=== PATIENT | male | born 1935 | race Caucasian/White ===

== ENCOUNTER 2016-06-19 10:39 | Emergency (ER) | payer OTHER ==
[~2016-06-19] VITALS: Ht 170.2 cm; Wt 81.0 kg
[~2016-06-19 10:39] MED LIST: ATEN25TA PO; AUGM875T PO; KLOR8TAB PO; LOSA100T PO; NIFE60TA58 PO
[2016-06-19 10:46] VITALS: BP 125/77; PULSE 90; RESP 18; TEMP 97.8; O2SAT 95
[2016-06-19] MEDS ORDERED: SODIUM CHLOR 0.9% 1000 ML INJ 1,000 ML IV ONE (11:07)
[2016-06-19] MEDS ORDERED: SODIUM CHLORIDE 0.9% FLUSH 10 ML FLUSH IVF PRN (11:15)
[2016-06-19] MEDS ORDERED: MECLIZINE HCL 25 MG TAB PO ONE (11:15)
[2016-06-19 11:16] VITALS: TEMP 98.2; O2SAT 97
[2016-06-19] MEDS ORDERED: SIMV20TA PO (11:16)
--- NOTE | 2016-06-19 11:19 | PD ---
HPI . Weakness Chief Complaint: General Weakness Time Seen by Provider: 10:58 Travel History International Travel<30 days: No Contact w/Intl Traveler<30days: No Traveled to known affect area: No History of Present Illness HPI Patient presents complaining with generalized weakness. He's been having problems for a couple weeks. He reports frequency of urination and nocturia 2 weeks. He denies any hesitancy or dribbling. Denies dysuria. He reports generalized weakness for the last 3-4 days. He reports pain in both knees and shoulders which is an ongoing issue. He is also complaining with swelling of both feet. In addition, he is complaining with pressure in the right side of his head with associated lightheadedness. He reports that he has an appointment to see his primary care provider in 3 hours but did not feel that he can wait that long. He subsequently presented to us for evaluation. PFSH Past Medical History Hx Anticoagulant Therapy: Yes (81 MG ASA) Arthritis: Yes Asthma: No Heart Rhythm Problems: No Cardiovascular Problems: Yes High Cholesterol: Yes Chest Pain: No Congestive Heart Failure: No COPD: No Cerebrovascular Accident: No Diabetes: No Diminished Hearing: No Gastrointestinal Disorders: No GERD: No Genitourinary: No Headaches: No Hepatitis: No Hiatal Hernia: No Hypertension: Yes Musculoskeletal: Yes (SPUR L ELBOW VAIOUS BROKEN BONES) Neurologic: Yes Reproductive: No Respiratory: No Immunizations Current: Yes Migraines: No Myocardial Infarction: No Seizures: No Sleep Apnea: No Ulcer: No Influenza Vaccination: No Past Surgical History Abdominal Surgery: Yes Appendectomy: Yes Cardiac Surgery: No Cholecystectomy: No Ear Surgery: No Endocrine Surgery: No Eye Surgery: No Genitourinary Surgery: No Gynecologic Surgery: No Neurologic Surgery: No Oral Surgery: Yes (TONSILECTOMY) Thoracic Surgery: No Tonsillectomy: Yes Other Surgery: Yes Social History Alcohol Use: No Tobacco Use: No Substance Use: No Allergies-Medications (Allergen,Severity, Reaction): Coded Allergies: No Known Allergies (Verified , 02/02/16) Reported Meds & Prescriptions Reported Meds & Active Scripts Active Reported Simvastatin 20 Mg Tab 20 Mg PO DAILY Klor-Con 8 (Potassium Chloride) 8 Meq Tab 8 Meq PO DAILY Losartan (Losartan Potassium) 100 Mg Tab 100 Mg PO DAILY Nifedipine ER 24 HR (Nifedipine) 60 Mg Tab 60 Mg PO DAILY Review of Systems Except as stated in HPI: all other systems reviewed are Neg General / Constitutional: No: Fever, Chills Eyes: No: Diploplia, Blurred Vision HENT: Positive: Headaches, Lightheadedness Cardiovascular: No: Chest Pain or Discomfort Respiratory: No: Shortness of Breath Gastrointestinal: No: Nausea, Vomiting, Diarrhea, Abdominal Pain Genitourinary: Positive: Frequency, Nocturia, No: Dysuria, Hesitancy, Dribbling Musculoskeletal: Positive: Arthralgias, Edema Neurologic: Positive: Weakness Physical Exam Narrative GENERAL: Healthy-appearing older man in no acute distress. SKIN: Warm and dry. HEAD: Atraumatic. Normocephalic. Scalp is nontender to palpation. EYES: Pupils equal and round. Extraocular movements are intact. ENT: No nasal bleeding or discharge. Mucous membranes pink and moist. NECK: Trachea midline. Neck is supple. CARDIOVASCULAR: Regular rate and rhythm. Heart sounds are normal. RESPIRATORY: No accessory muscle use. Lungs are clear with good air movement throughout. GASTROINTESTINAL: Abdomen soft, non-tender, nondistended. MUSCULOSKELETAL: No obvious deformities. No edema. There is no pitting edema of his feet. He has full and equal pedal pulses. NEUROLOGICAL: Awake and alert. No obvious cranial nerve deficits. Motor grossly within normal limits. Normal speech. PSYCHIATRIC: Appropriate mood and affect; insight and judgment normal. Data Data Last Documented VS Vital Signs Date Time Temp Pulse Resp B/P Pulse Ox O2 Delivery O2 Flow Rate FiO2 06/19/16 11:16 98.2 97 Room Air 06/19/16 10:46 90 18 125/77 Orders Complete Blood Count With Diff (06/19/16 11:07) Comprehensive Metabolic Panel (06/19/16 11:07) Magnesium (Mg) (06/19/16 11:07) Ckmb (Isoenzyme) Profile (06/19/16 11:07) Troponin I (06/19/16 11:07) Urinalysis - C+S If Indicated (06/19/16 11:07) Ct Brain W/O Iv Contrast(Rout) (06/19/16 11:07) Ecg Monitoring (06/19/16 11:07) Iv Access Insert/Monitor (06/19/16 11:07) Oximetry (06/19/16 11:07) Meclizine (Antivert) (06/19/16 11:15) Sodium Chloride 0.9% Flush (Ns Flush) (06/19/16 11:15) Sodium Chlor 0.9% 1000 Ml Inj (Ns 1000 M (06/19/16 11:07) Prochlorperazine Inj (Compazine Inj) (06/19/16 11:30) CKMB (06/19/16 11:15) CKMB% (06/19/16 11:15) Labs Laboratory Tests Test 06/19/16 06/19/16 11:15 11:59 White Blood Count 8.9 TH/MM3 Red Blood Count 4.82 MIL/MM3 Hemoglobin 14.2 GM/DL Hematocrit 42.3 % Mean Corpuscular Volume 87.8 FL Mean Corpuscular Hemoglobin 29.4 PG Mean Corpuscular Hemoglobin 33.5 % Concent Red Cell Distribution Width 13.0 % Platelet Count 196 TH/MM3 Mean Platelet Volume 6.8 FL Neutrophils (%) (Auto) 73.8 % Lymphocytes (%) (Auto) 13.8 % Monocytes (%) (Auto) 10.0 % Eosinophils (%) (Auto) 1.7 % Basophils (%) (Auto) 0.7 % Neutrophils # (Auto) 6.5 TH/MM3 Lymphocytes # (Auto) 1.2 TH/MM3 Monocytes # (Auto) 0.9 TH/MM3 Eosinophils # (Auto) 0.2 TH/MM3 Basophils # (Auto) 0.1 TH/MM3 CBC Comment DIFF FINAL Differential Comment Sodium Level 139 MEQ/L Potassium Level 3.4 MEQ/L Chloride Level 103 MEQ/L Carbon Dioxide Level 24.5 MEQ/L Anion Gap 12 MEQ/L Blood Urea Nitrogen 13 MG/DL Creatinine 0.90 MG/DL Estimat Glomerular Filtration 81 ML/MIN Rate Random Glucose 112 MG/DL Calcium Level 8.7 MG/DL Magnesium Level 1.9 MG/DL Total Bilirubin 1.0 MG/DL Aspartate Amino Transf 22 U/L (AST/SGOT) Alanine Aminotransferase 26 U/L (ALT/SGPT) Alkaline Phosphatase 60 U/L Total Creatine Kinase 111 U/L Creatine Kinase MB 1.7 NG/ML Troponin I LESS THAN 0.02 NG/ML Total Protein 7.2 GM/DL Albumin 3.9 GM/DL Urine Collection Type CLEAN CATCH Urine Color YELLOW Urine Turbidity CLEAR Urine pH 6.0 Urine Specific Abrams 1.016 Urine Protein TRACE mg/dL Urine Glucose (UA) NEG mg/dL Urine Ketones NEG mg/dL Urine Occult Blood NEG Urine Nitrite NEG Urine Bilirubin NEG Urine Leukocyte Esterase NEG Urine RBC 0-3 /hpf Urine WBC 3-5 /hpf Urine Squamous Epithelial 0-5 /hpf Cells Urine Mucus FEW /lpf Microscopic Urinalysis Comment CULT NOT INDICATED Urine Collection Time 11:59 [facility] Medical Decision Making Medical Screen Exam Complete: Yes Emergency Medical Condition: Yes Medical Record Reviewed: Yes (medical history includes hypertension, hyperlipidemia, coronary artery disease, osteoarthritis, vertigo, previous syncope and a history of tobacco abuse) Interpretation(s) EKG shows a left bundle branch block which is unchanged from previous Differential Diagnosis Differential diagnosis of weakness includes but is not limited to infection, CVA , electrolyte disturbance, renal failure, hypoglycemia, UTI, ACS, acute blood loss Narrative Course Patient presents with numerous complaints with the chief complaint seems to be weakness with head pain and lightheadedness. He has an appointment to be seen by his primary care physician in just a couple of hours. I will check baseline labs. I will do a CT of his head. I anticipate that we will be able to discharge him in time to make it to his doctor's office. CBC & BMP Diagram 06/19/16 11:15 Cardiac enzymes are negative. UA has no evidence of infection. Last Impressions Head CT 06/19/16 1107 Signed Impressions: Service Date/Time: Wednesday, June 19, 2016 11:18 - CONCLUSION: No acute intracranial findings. Jonathan Bowen MD This patient is clear to see his primary care physician as previously scheduled. Diagnosis Primary Impression: Generalized weakness Additional Instructions: See your primary care physician as scheduled Disposition: 01 DISCHARGE HOME Condition: Stable Yuko Crain MD Jun 19, 2016 11:19
[2016-06-19 11:20] LABS: AUTOMATED NEUTROPHIL # 6.5 TH/MM3 (1.8-7.7); BASOPHIL # 0.1 TH/MM3 (0-0.2); BASOPHIL % 0.7 % (0.0-2.0); EOSINOPHIL # 0.2 TH/MM3 (0-0.4); EOSINOPHIL % 1.7 % (0.0-4.0); HEMATOCRIT 42.3 % (39.0-51.0); HEMO FLAGS DIFF FINAL; LYMPH % 13.8 % (9.0-44.0); LYMPHOCYTE # 1.2 TH/MM3 (1.0-4.8); MEAN CELL VOLUME 87.8 FL (80.0-100.0); MEAN CORPUSCULAR HEMOGLOBIN 29.4 PG (27.0-34.0); MEAN CORPUSCULAR HGB CONC 33.5 % (32.0-36.0); NEUT % 73.8 % (16.0-70.0); PLATELET COUNT 196 TH/MM3 (150-450); RED BLOOD COUNT 4.82 MIL/MM3 (4.50-5.90); WHITE BLOOD COUNT 8.9 TH/MM3 (4.0-11.0)
[2016-06-19] MEDS ORDERED: PROCHLORPERAZINE INJ 10 MG/2 ML VIAL IV PUSH ONE (11:30)
[2016-06-19 11:31] LABS: CHLORIDE 103 MEQ/L (98-107); POTASSIUM 3.4 MEQ/L (3.5-5.1); SODIUM (NA) 139 MEQ/L (136-145)
[2016-06-19 11:36] LABS: ANION GAP 12 MEQ/L (5-15); BICARBONATE 24.5 MEQ/L (21.0-32.0); BLOOD UREA NITROGEN 13 MG/DL (7-18); MAGNESIUM 1.9 MG/DL (1.5-2.5)
[2016-06-19 11:39] LABS: ALT (GPT) 26 U/L (12-78); AST (GOT) 22 U/L (15-37); GLOMERULAR FILTRATION RATE 81 ML/MIN (>89)
[2016-06-19 11:42] LABS: ALKALINE PHOSPHATASE 60 U/L (45-117); CREATINE KINASE 111 U/L (39-308)
[2016-06-19 11:53] LABS: CKMB 1.7 NG/ML (0.5-3.6)
--- NOTE | 2016-06-19 11:55 | RADHPO ---
EXAM DATE/TIME: 06/19/2016 11:18 [facility] COMPARISON: CT BRAIN W/O CONTRAST, April 09, 2015, 9:25. INDICATIONS : Dizziness. Weakness. RADIATION DOSE: 67.24 CTDIvol (mGy) MEDICAL HISTORY : Cardiovascular disease. Hypertension. SURGICAL HISTORY : Appendectomy. ENCOUNTER: Initial ACUITY: 3 days PAIN SCALE: 0/10 LOCATION: cranial TECHNIQUE: Multiple contiguous axial images were obtained of the head. Using automated exposure control and adj ustment of the mA and/or kV according to patient size, radiation dose was kept as low as reasonably a chievable to obtain optimal diagnostic quality images. FINDINGS: There is patchy mild diminished attenuation in periventricular white matter. A tiny lacunar infarct p resent in the left insula. There is no evidence of mass or hemorrhage. There is nothing to suggest ac robbie infarction. The extracranial structures are benign intact. CONCLUSION: No acute intracranial findings. Jonathan Bowen MD on June 19, 2016 at 11:53 Board Certified Radiologist. This report was verified electronically.
[2016-06-19 12:01] LABS: BLOOD, URINE NEG (NEG); GLUCOSE,URINE NEG (NEG); KETONE, URINE NEG (NEG); NITRITE,URINE NEG (NEG)
[2016-06-19 12:24] LABS: METHOD OF COLLECTION CLEAN CATCH; URINE COLOR YELLOW (YELLW/STRAW)
[2016-06-19 12:25] LABS: COMMENT (UR) CULT NOT INDICATED; CULTURE IF INDICATED CULT NOT INDICATED; MUCUS URINE FEW /lpf (OCC); RBC, URINE 0-3 /hpf (0-3); SQUAMOUS EPITHELIAL CELL URINE 0-5 /hpf (0-5)
--- NOTE | 2016-06-20 14:41 | EKG ---
Date Performed: 06/19/2016 Time Performed: 10:52:36 PTAGE: 81 years EKG: Sinus rhythm Left axis deviation Left bundle branch block Compared to prior tracing no significant change Abnorma l ECG PREVIOUS TRACING : 12/26/2015 13.42 DOCTOR: Ryan Angel Interpretating Date/Time 06/20/2016 14:38:56
== END 2016-06-19 13:16 | disposition home or self-care (01) ==
LOC: PHED 10:39
DX: R53.1 Weakness (principal); R94.31 Abnormal electrocardiogram [ECG] [EKG]; I44.7 Left bundle-branch block, unspecified; R35.0 Frequency of micturition; R35.1 Nocturia; R42 Dizziness and giddiness; E78.00 Pure hypercholesterolemia, unspecified; I10 Essential (primary) hypertension; E78.5 Hyperlipidemia, unspecified; I25.10 Atherosclerotic heart disease of native coronary artery without angina pectoris; Z79.82 Long term (current) use of aspirin; Z87.891 Personal history of nicotine dependence
CPT/HCPCS: 70450; 80053; 81001; 82550; 82552; 83735; 84484; 85025; 93005; 96361; 96374; 99285; J0780; J7030

== ENCOUNTER 2016-06-24 02:11 | Emergency (ER) | payer OTHER ==
[~2016-06-24] VITALS: Ht 170.2 cm; Wt 80.0 kg
[~2016-06-24 02:11] MED LIST changes: -ATEN25TA PO; -AUGM875T PO; +SIMV20TA PO
[2016-06-24 02:17] VITALS: BP 151/87; PULSE 99; RESP 18; TEMP 97.6; O2SAT 96
[2016-06-24 02:32] VITALS: BP 151/87; PULSE 96; RESP 18; TEMP 97.6; O2SAT 96
[2016-06-24] MEDS ORDERED: SODIUM CHLOR 0.9% 1000 ML INJ 1,000 ML IV SCH ×2 (02:49→03:45)
--- NOTE | 2016-06-24 02:52 | PD ---
HPI Chief Complaint: Abdominal Pain Time Seen by Provider: 02:35 Travel History International Travel<30 days: No Contact w/Intl Traveler<30days: No Traveled to known affect area: No History of Present Illness HPI The patient is an 81-year-old male that complains of midline epigastric pain and nausea with vomiting once beginning 6 hours ago. The patient feels that it is the prednisone that he was given on the seventh of this month. He was given prednisone for his arthritis. He denies vomiting any blood or any melanotic or bloody stools. He denies any fever. He denies any diarrhea. His last bowel movement was fairly normal this morning. He still has his gallbladder but he has had an appendectomy. PFSH Past Medical History Hx Anticoagulant Therapy: Yes (81 MG ASA) Arthritis: Yes Asthma: No Heart Rhythm Problems: No Cardiovascular Problems: Yes High Cholesterol: Yes Chest Pain: No Congestive Heart Failure: No COPD: No Cerebrovascular Accident: No Diabetes: No Diminished Hearing: No Gastrointestinal Disorders: No GERD: No Genitourinary: No Headaches: No Hepatitis: No Hiatal Hernia: No Hypertension: Yes Musculoskeletal: Yes (SPUR L ELBOW VAIOUS BROKEN BONES) Neurologic: Yes Reproductive: No Respiratory: No Immunizations Current: Yes Migraines: No Myocardial Infarction: No Seizures: No Sleep Apnea: No Ulcer: No Tetanus Vaccination: Unknown Influenza Vaccination: No Past Surgical History Abdominal Surgery: Yes Appendectomy: Yes Cardiac Surgery: No Cholecystectomy: No Ear Surgery: No Endocrine Surgery: No Eye Surgery: No Genitourinary Surgery: No Gynecologic Surgery: No Neurologic Surgery: No Oral Surgery: Yes (TONSILECTOMY) Thoracic Surgery: No Tonsillectomy: Yes Other Surgery: Yes Social History Alcohol Use: No Tobacco Use: No Substance Use: No Allergies-Medications (Allergen,Severity, Reaction): Coded Allergies: No Known Allergies (Verified , 06/24/16) Reported Meds & Prescriptions Reported Meds & Active Scripts Active Reported Simvastatin 20 Mg Tab 20 Mg PO DAILY Klor-Con 8 (Potassium Chloride) 8 Meq Tab 8 Meq PO DAILY Losartan (Losartan Potassium) 100 Mg Tab 100 Mg PO DAILY Nifedipine ER 24 HR (Nifedipine) 60 Mg Tab 60 Mg PO DAILY Review of Systems Except as stated in HPI: all other systems reviewed are Neg Physical Exam Narrative GENERAL: The patient is alert, oriented 3 in moderate apparent distress with his midline epigastric discomfort. His vital signs show temperature 97.6, pulse 99, blood pressure 151/87 but are otherwise normal. SKIN: Focused skin assessment warm/dry. HEAD: Atraumatic. Normocephalic. EYES: Pupils equal and round. No scleral icterus. No injection or drainage. ENT: No nasal bleeding or discharge. Mucous membranes pink and moist. NECK: Trachea midline. No JVD. CARDIOVASCULAR: Regular rate and rhythm. No murmur appreciated. RESPIRATORY: No accessory muscle use. Clear to auscultation. Breath sounds equal bilaterally. GASTROINTESTINAL: Abdomen soft, with slight tenderness to direct palpation in the midline epigastrium, nondistended. Hepatic and splenic margins not palpable. No guarding or rebound is present. MUSCULOSKELETAL: No obvious deformities. No clubbing. No cyanosis. No edema. NEUROLOGICAL: Awake and alert. No obvious cranial nerve deficits. Motor grossly within normal limits. Normal speech. PSYCHIATRIC: Appropriate mood and affect; insight and judgment normal. Data Data Last Documented VS Vital Signs Date Time Temp Pulse Resp B/P Pulse Ox O2 Delivery O2 Flow Rate FiO2 06/24/16 03:43 68 18 142/74 97 Room Air 06/24/16 02:32 97.6 Orders Complete Blood Count With Diff (06/24/16 02:49) Comprehensive Metabolic Panel (06/24/16 02:49) Urinalysis - C+S If Indicated (06/24/16 02:49) Iv Access Insert/Monitor (06/24/16 02:49) Ecg Monitoring (06/24/16 02:49) Oximetry (06/24/16 02:49) Morphine Inj (Morphine Inj) (06/24/16 03:00) Ondansetron Inj (Zofran Inj) (06/24/16 03:00) Pantoprazole Inj (Protonix Inj) (06/24/16 03:00) Sodium Chlor 0.9% 1000 Ml Inj (Ns 1000 M (06/24/16 02:49) Sodium Chloride 0.9% Flush (Ns Flush) (06/24/16 03:00) Famotidine Inj (Pepcid Inj) (06/24/16 03:00) Sodium Chlor 0.9% 1000 Ml Inj (Ns 1000 M (06/24/16 03:45) Al-Mag Hy-Si 40-40-4 Mg/Ml Liq (Mag-Al P (06/24/16 03:45) Lidocaine 2% Viscous (Xylocaine 2% Visco (06/24/16 03:45) Labs Laboratory Tests Test 06/24/16 06/24/16 03:00 03:35 White Blood Count 8.8 TH/MM3 Red Blood Count 4.66 MIL/MM3 Hemoglobin 13.7 GM/DL Hematocrit 41.3 % Mean Corpuscular Volume 88.6 FL Mean Corpuscular Hemoglobin 29.4 PG Mean Corpuscular Hemoglobin 33.2 % Concent Red Cell Distribution Width 13.2 % Platelet Count 205 TH/MM3 Mean Platelet Volume 7.2 FL Neutrophils (%) (Auto) 75.5 % Lymphocytes (%) (Auto) 11.3 % Monocytes (%) (Auto) 12.1 % Eosinophils (%) (Auto) 0.8 % Basophils (%) (Auto) 0.3 % Neutrophils # (Auto) 6.6 TH/MM3 Lymphocytes # (Auto) 1.0 TH/MM3 Monocytes # (Auto) 1.1 TH/MM3 Eosinophils # (Auto) 0.1 TH/MM3 Basophils # (Auto) 0.0 TH/MM3 CBC Comment DIFF FINAL Differential Comment Sodium Level 140 MEQ/L Potassium Level 3.6 MEQ/L Chloride Level 106 MEQ/L Carbon Dioxide Level 23.7 MEQ/L Anion Gap 10 MEQ/L Blood Urea Nitrogen 18 MG/DL Creatinine 1.10 MG/DL Estimat Glomerular Filtration 64 ML/MIN Rate Random Glucose 149 MG/DL Calcium Level 8.7 MG/DL Total Bilirubin 0.6 MG/DL Aspartate Amino Transf 16 U/L (AST/SGOT) Alanine Aminotransferase 26 U/L (ALT/SGPT) Alkaline Phosphatase 60 U/L Total Protein 7.1 GM/DL Albumin 3.8 GM/DL Urine Color YELLOW Urine Turbidity CLEAR Urine pH 5.5 Urine Specific [place] 1.007 Urine Protein TRACE mg/dL Urine Glucose (UA) NEG mg/dL Urine Ketones NEG mg/dL Urine Occult Blood NEG Urine Nitrite NEG Urine Bilirubin NEG Urine Leukocyte Esterase NEG Urine RBC 0-3 /hpf Urine Squamous Epithelial 0-5 /hpf Cells Urine Mucus OCC /lpf Microscopic Urinalysis Comment CULT NOT INDICATED MDM Medical Decision Making Medical Screen Exam Complete: Yes Emergency Medical Condition: Yes Medical Record Reviewed: Yes Interpretation(s) The urinalysis is normal and culture is not indicated. The complete metabolic profile shows a glucose of 149 with a GFR of 64 but is otherwise normal. The CBC is normal. Differential Diagnosis Gastritis, gastroenteritis, ulcer pain, pancreatitis, electrolyte disorder, dehydration Narrative Course It is now 0419 and the patient feels much better with regard to these pain and his nausea is gone. Impression: Gastritis Plan: The patient is given Prilosec along with Zofran for nausea. He is to sit with his head upright slightly in bed so the stomach acid will stay in the stomach. He should follow-up with his primary care physician in one week. Diagnosis Primary Impression: Gastritis Additional Instructions: As we discussed, discontinue the prednisone. Call your primary care physician in telling what happened. The Prilosec is one tablet daily and the Zofran is one tablet every 6 hours as needed for nausea. Lay in bed with her head slightly upright so that the acid will stay in your stomach and not work its way up to the esophagus. Med/Other Pt SpecificInfo: Prescription(s) given Scripts Ondansetron Odt (Zofran Odt)4 Mg Tab4 Mg SL Q6HR PRN (Nausea/Vomiting) #30 TAB Ref 0 Prov:Kenneth Vyas MD 06/24/16 Omeprazole (Prilosec)20 Mg Cap20 Mg PO DAILY #30 CAP Ref 0 Prov:Kenneth Vyas MD 06/24/16 Disposition: 01 DISCHARGE HOME Condition: Stable Kenneth Vyas MD Jun 24, 2016 02:52
[2016-06-24 03:00] VITALS: RESP 18; O2SAT 96
[2016-06-24] MEDS ORDERED: PANTOPRAZOLE SODIUM 40 MG VIAL IVP ONE (03:00)
[2016-06-24] MEDS ORDERED: MORPHINE SULFATE 4 MG/ML INJ IV PUSH ONE (03:00)
[2016-06-24] MEDS ORDERED: FAMOTIDINE 20 MG/2 ML VIAL IV PUSH ONE (03:00)
[2016-06-24] MEDS ORDERED: ONDANSETRON HCL 4 MG/2 ML VIAL IVP ONE (03:00)
[2016-06-24] MEDS ORDERED: SODIUM CHLORIDE 0.9% FLUSH 10 ML FLUSH IV FLUSH PRN (03:00)
[2016-06-24 03:09] LABS: AUTOMATED NEUTROPHIL # 6.6 TH/MM3 (1.8-7.7); BASOPHIL % 0.3 % (0.0-2.0); EOSINOPHIL # 0.1 TH/MM3 (0-0.4); EOSINOPHIL % 0.8 % (0.0-4.0); HEMATOCRIT 41.3 % (39.0-51.0); HEMO FLAGS DIFF FINAL; LYMPH % 11.3 % (9.0-44.0); MEAN CELL VOLUME 88.6 FL (80.0-100.0); MEAN CORPUSCULAR HEMOGLOBIN 29.4 PG (27.0-34.0); MEAN CORPUSCULAR HGB CONC 33.2 % (32.0-36.0); MONO % 12.1 % (0.0-8.0); NEUT % 75.5 % (16.0-70.0); PLATELET COUNT 205 TH/MM3 (150-450); RED BLOOD COUNT 4.66 MIL/MM3 (4.50-5.90); RED CELL DISTRIBUTION WIDTH 13.2 % (11.6-17.2); WHITE BLOOD COUNT 8.8 TH/MM3 (4.0-11.0)
[2016-06-24 03:19] LABS: CHLORIDE 106 MEQ/L (98-107); POTASSIUM 3.6 MEQ/L (3.5-5.1); SODIUM (NA) 140 MEQ/L (136-145)
[2016-06-24 03:22] LABS: ANION GAP 10 MEQ/L (5-15); BICARBONATE 23.7 MEQ/L (21.0-32.0)
[2016-06-24 03:23] LABS: BLOOD UREA NITROGEN 18 MG/DL (7-18)
[2016-06-24 03:25] LABS: ALT (GPT) 26 U/L (12-78)
[2016-06-24 03:26] LABS: AST (GOT) 16 U/L (15-37); GLOMERULAR FILTRATION RATE 64 ML/MIN (>89)
[2016-06-24 03:27] LABS: TOTAL BILIRUBIN ADULT 0.6 MG/DL (0.2-1.0)
[2016-06-24 03:28] LABS: ALKALINE PHOSPHATASE 60 U/L (45-117)
[2016-06-24 03:40] LABS: BLOOD, URINE NEG (NEG); GLUCOSE,URINE NEG (NEG); KETONE, URINE NEG (NEG); NITRITE,URINE NEG (NEG); PH, URINE 5.5 (5.0-8.5)
[2016-06-24 03:43] VITALS: BP 142/74; PULSE 68; RESP 18; O2SAT 97
[2016-06-24] MEDS ORDERED: LIDOCAINE VISCOUS 2% SOLN 15 ML UDC PO ONE (03:45)
[2016-06-24] MEDS ORDERED: ALUMINUM/MAGNESIUM/SIMETH 30 ML CUP PO ONE (03:45)
[2016-06-24 03:56] LABS: URINE COLOR YELLOW (YELLW/STRAW)
[2016-06-24 03:57] LABS: RBC, URINE 0-3 /hpf (0-3); SQUAMOUS EPITHELIAL CELL URINE 0-5 /hpf (0-5)
[2016-06-24 03:58] LABS: MUCUS URINE OCC /lpf (OCC)
[2016-06-24 04:00] LABS: COMMENT (UR) CULT NOT INDICATED; CULTURE IF INDICATED CULT NOT INDICATED
[2016-06-24] MEDS ORDERED: ZOFR4TAB3 SL (04:21)
[2016-06-24] MEDS ORDERED: PRIL20CA9 PO (04:21)
[2016-06-24 04:32] VITALS: BP 155/74; PULSE 66; RESP 18; O2SAT 97
== END 2016-06-24 04:46 | disposition home or self-care (01) ==
LOC: PHED 02:11
DX: K29.70 Gastritis, unspecified, without bleeding (principal); E78.00 Pure hypercholesterolemia, unspecified; I10 Essential (primary) hypertension; Z79.82 Long term (current) use of aspirin
CPT/HCPCS: 80053; 81001; 85025; 96361; 96374; 96375; 99284; C9113; J2270; J2405; J7030

== ENCOUNTER 2016-08-04 05:44 | Emergency (ER) | payer OTHER ==
[~2016-08-04] VITALS: Ht 170.2 cm; Wt 80.0 kg
[~2016-08-04 05:44] MED LIST changes: +PRIL20CA9 PO; +ZOFR4TAB3 SL
[2016-08-04 05:51] VITALS: BP 158/85; PULSE 73; RESP 16; TEMP 97.5; O2SAT 95
[2016-08-04] MEDS ORDERED: SODIUM CHLORIDE 0.9% FLUSH 10 ML FLUSH IVF PRN (06:15)
[2016-08-04 06:25] VITALS: BP_SYST 193; BP_SYST 194; BP_DIAS 84; BP_DIAS 93; PULSE 78; RESP 16; O2SAT 97
--- NOTE | 2016-08-04 06:37 | PD ---
HPI Chief Complaint: Dizziness Time Seen by Provider: 06:12 Travel History International Travel<30 days: No Contact w/Intl Traveler<30days: No Traveled to known affect area: No History of Present Illness HPI The patient is an 81-year-old male who came into the emergency department because of another "dizziness" episode. This is not vertigo, he just feels lightheaded. He did not fall. He denies any focal neurologic change. She has had these dizziness episodes for over 10 years. He is a fairly frequent visitor to the emergency department for dizziness and generalized weakness. He states this time he has been urinating frequently. He also has a pressure sensation in the right occipital area of his head. He is also had this sensation intermittently for years. There is no nausea, vomiting or abdominal pain. There is no chest pain or shortness of breath or palpitations. He denies any melanotic or bloody stools. He denies any fever. His vision and speech remained normal during these dizziness episodes. He states he would like to find out what this is. He does not see a neurologist. His primary care physician is Dr. Martinez who treats him for hypertension. PFSH Past Medical History Hx Anticoagulant Therapy: Yes (81 MG ASA) Arthritis: Yes Asthma: No Heart Rhythm Problems: No Cardiovascular Problems: Yes High Cholesterol: Yes Chest Pain: No Congestive Heart Failure: No COPD: No Cerebrovascular Accident: No Diabetes: No Diminished Hearing: No Gastrointestinal Disorders: No GERD: No Genitourinary: No Headaches: No Hepatitis: No Hiatal Hernia: No Hypertension: Yes Musculoskeletal: Yes (SPUR L ELBOW VAIOUS BROKEN BONES) Neurologic: Yes Reproductive: No Respiratory: No Immunizations Current: Yes Migraines: No Myocardial Infarction: No Seizures: No Sleep Apnea: No Ulcer: No Past Surgical History Abdominal Surgery: Yes Appendectomy: Yes Cardiac Surgery: No Cholecystectomy: No Ear Surgery: No Endocrine Surgery: No Eye Surgery: No Genitourinary Surgery: No Gynecologic Surgery: No Neurologic Surgery: No Oral Surgery: Yes (TONSILECTOMY) Thoracic Surgery: No Tonsillectomy: Yes Other Surgery: Yes Social History Alcohol Use: No Tobacco Use: No Substance Use: No Allergies-Medications (Allergen,Severity, Reaction): Coded Allergies: No Known Allergies (Verified , 08/04/16) Reported Meds & Prescriptions Reported Meds & Active Scripts Active Reported Simvastatin 20 Mg Tab 20 Mg PO DAILY Klor-Con 8 (Potassium Chloride) 8 Meq Tab 8 Meq PO DAILY Losartan (Losartan Potassium) 100 Mg Tab 100 Mg PO DAILY Nifedipine ER 24 HR (Nifedipine) 60 Mg Tab 60 Mg PO DAILY Review of Systems Except as stated in HPI: all other systems reviewed are Neg Physical Exam Narrative GENERAL: The patient is alert, oriented 3 in no apparent distress. The temperature is 97.5, blood pressure 158/85 but the rest the vital signs are normal. SKIN: Focused skin assessment warm/dry. HEAD: Atraumatic. Normocephalic. There is no skull tenderness with the patient feels the sensation of a pressure on the right occipital area. EYES: Pupils equal and round. No scleral icterus. No injection or drainage. No nystagmus is present and extraocular movements are normal. ENT: No nasal bleeding or discharge. Mucous membranes pink and moist. NECK: Trachea midline. No JVD. CARDIOVASCULAR: Regular rate and rhythm. No murmur appreciated. RESPIRATORY: No accessory muscle use. Clear to auscultation. Breath sounds equal bilaterally. GASTROINTESTINAL: Abdomen soft, non-tender, nondistended. Hepatic and splenic margins not palpable. No guarding or rebound is present. MUSCULOSKELETAL: No obvious deformities. No clubbing. No cyanosis. There is 1 + bilateral lower extremity edema. NEUROLOGICAL: Awake and alert. No obvious cranial nerve deficits. Motor grossly within normal limits. Normal speech. The gait is wide spaced and short steps but the patient can ambulate quite well. PSYCHIATRIC: Appropriate mood and affect; insight and judgment normal. Data Data Last Documented VS Vital Signs Date Time Temp Pulse Resp B/P Pulse Ox O2 Delivery O2 Flow Rate FiO2 08/04/16 06:59 72 18 189/88 94 Room Air 08/04/16 05:51 97.5 Orders Electrocardiogram (08/04/16 06:12) Complete Blood Count With Diff (08/04/16 06:12) Comprehensive Metabolic Panel (08/04/16 06:12) Magnesium (Mg) (08/04/16 06:12) B-Type Natriuretic Peptide (08/04/16 06:12) Troponin I (08/04/16 06:12) Urinalysis - C+S If Indicated (08/04/16 06:12) Ct Brain W/O Iv Contrast(Rout) (08/04/16 06:12) Ecg Monitoring (08/04/16 06:12) Iv Access Insert/Monitor (08/04/16 06:12) Oximetry (08/04/16 06:12) Sodium Chloride 0.9% Flush (Ns Flush) (08/04/16 06:15) Labs Laboratory Tests Test 08/04/16 08/04/16 06:35 06:48 White Blood Count 7.7 TH/MM3 Red Blood Count 4.95 MIL/MM3 Hemoglobin 14.5 GM/DL Hematocrit 43.6 % Mean Corpuscular Volume 88.1 FL Mean Corpuscular Hemoglobin 29.3 PG Mean Corpuscular Hemoglobin 33.3 % Concent Red Cell Distribution Width 13.4 % Platelet Count 200 TH/MM3 Mean Platelet Volume 7.1 FL Neutrophils (%) (Auto) 66.6 % Lymphocytes (%) (Auto) 17.1 % Monocytes (%) (Auto) 11.8 % Eosinophils (%) (Auto) 3.8 % Basophils (%) (Auto) 0.7 % Neutrophils # (Auto) 5.1 TH/MM3 Lymphocytes # (Auto) 1.3 TH/MM3 Monocytes # (Auto) 0.9 TH/MM3 Eosinophils # (Auto) 0.3 TH/MM3 Basophils # (Auto) 0.1 TH/MM3 CBC Comment DIFF FINAL Differential Comment Sodium Level 139 MEQ/L Potassium Level 3.5 MEQ/L Chloride Level 103 MEQ/L Carbon Dioxide Level 26.3 MEQ/L Anion Gap 10 MEQ/L Blood Urea Nitrogen 11 MG/DL Creatinine 0.81 MG/DL Estimat Glomerular Filtration 91 ML/MIN Rate Random Glucose 117 MG/DL Calcium Level 9.0 MG/DL Magnesium Level 2.4 MG/DL Total Bilirubin 1.0 MG/DL Aspartate Amino Transf 18 U/L (AST/SGOT) Alanine Aminotransferase 23 U/L (ALT/SGPT) Alkaline Phosphatase 60 U/L Troponin I LESS THAN 0.02 NG/ML B-Type Natriuretic Peptide 69 PG/ML Total Protein 7.4 GM/DL Albumin 4.1 GM/DL Urine Collection Type CLEAN CATCH Urine Color YELLOW Urine Turbidity CLEAR Urine pH 6.0 Urine Specific [place] 1.008 Urine Protein 30 mg/dL Urine Glucose (UA) NEG mg/dL Urine Ketones NEG mg/dL Urine Occult Blood TRACE Urine Nitrite NEG Urine Bilirubin NEG Urine Leukocyte Esterase TRACE Urine RBC 0-3 /hpf Microscopic Urinalysis Comment CULT NOT INDICATED MDM Medical Decision Making Medical Screen Exam Complete: Yes Emergency Medical Condition: Yes Medical Record Reviewed: Yes Interpretation(s) The EKG shows left bundle-branch block and no change from EKG done in June 19 of this year. Differential Diagnosis Electrolyte disorder, ischemic CVA, congestive heart failure, hypertensive urgency, hypo-/hyperglycemia, urinary tract infection, anemia, renal insufficiency, occult infection, recurrent dizziness etiology undetermined, coronary ischemia, brain tumorhighly unlikely, intracranial bleedunlikely, dysrhythmia Narrative Course It is 0711 and the patient is transferred to Dr. Coy. Kenneth Vyas MD August 04, 2016 06:37
[2016-08-04 06:39] LABS: AUTOMATED NEUTROPHIL # 5.1 TH/MM3 (1.8-7.7); BASOPHIL # 0.1 TH/MM3 (0-0.2); BASOPHIL % 0.7 % (0.0-2.0); EOSINOPHIL # 0.3 TH/MM3 (0-0.4); EOSINOPHIL % 3.8 % (0.0-4.0); HEMATOCRIT 43.6 % (39.0-51.0); HEMO FLAGS DIFF FINAL; LYMPH % 17.1 % (9.0-44.0); LYMPHOCYTE # 1.3 TH/MM3 (1.0-4.8); MEAN CELL VOLUME 88.1 FL (80.0-100.0); MEAN CORPUSCULAR HEMOGLOBIN 29.3 PG (27.0-34.0); MEAN CORPUSCULAR HGB CONC 33.3 % (32.0-36.0); MONO % 11.8 % (0.0-8.0); NEUT % 66.6 % (16.0-70.0); PLATELET COUNT 200 TH/MM3 (150-450); RED BLOOD COUNT 4.95 MIL/MM3 (4.50-5.90); RED CELL DISTRIBUTION WIDTH 13.4 % (11.6-17.2); WHITE BLOOD COUNT 7.7 TH/MM3 (4.0-11.0)
[2016-08-04 06:47] LABS: CHLORIDE 103 MEQ/L (98-107); POTASSIUM 3.5 MEQ/L (3.5-5.1); SODIUM (NA) 139 MEQ/L (136-145)
[2016-08-04 06:51] LABS: ANION GAP 10 MEQ/L (5-15); BICARBONATE 26.3 MEQ/L (21.0-32.0); BLOOD UREA NITROGEN 11 MG/DL (7-18); MAGNESIUM 2.4 MG/DL (1.5-2.5)
[2016-08-04 06:54] LABS: ALT (GPT) 23 U/L (12-78); AST (GOT) 18 U/L (15-37); GLOMERULAR FILTRATION RATE 91 ML/MIN (>89)
[2016-08-04 06:55] LABS: BLOOD, URINE TRACE (NEG); GLUCOSE,URINE NEG (NEG); KETONE, URINE NEG (NEG); NITRITE,URINE NEG (NEG)
[2016-08-04 06:57] LABS: ALKALINE PHOSPHATASE 60 U/L (45-117)
[2016-08-04 06:57] LABS: METHOD OF COLLECTION CLEAN CATCH; URINE COLOR YELLOW (YELLW/STRAW)
[2016-08-04 06:59] VITALS: BP 189/88; PULSE 72; RESP 18; O2SAT 94
[2016-08-04 06:59] LABS: COMMENT (UR) CULT NOT INDICATED; CULTURE IF INDICATED CULT NOT INDICATED; RBC, URINE 0-3 /hpf (0-3)
--- NOTE | 2016-08-04 07:15 | RADHPO ---
EXAM DATE/TIME: 08/04/2016 06:31 [facility] COMPARISON: No previous studies available for comparison. INDICATIONS : Dizziness. Pressure right occipital region. RADIATION DOSE: 64.17 CTDIvol (mGy) MEDICAL HISTORY : Hypertension. SURGICAL HISTORY : None. ENCOUNTER: Initial ACUITY: 2 weeks PAIN SCALE: 0/10 LOCATION: Right occipital TECHNIQUE: Multiple contiguous axial images were obtained of the head. Using automated exposure control and adj ustment of the mA and/or kV according to patient size, radiation dose was kept as low as reasonably a chievable to obtain optimal diagnostic quality images. FINDINGS: CEREBRUM: The ventricles are normal for age. No evidence of midline shift, mass lesion, hemorrhage or acute in farction. No extra-axial fluid collections are seen. Atrophy and chronic low attenuation in the allie ventricular white matter again noted. POSTERIOR FOSSA: The cerebellum and brainstem are intact. The 4th ventricle is midline. The cerebellopontine angle i s unremarkable. EXTRACRANIAL: The visualized portion of the orbits is intact. SKULL: The calvaria is intact. No evidence of skull fracture. CONCLUSION: No acute abnormality. Jonathan Sewell MD on August 04, 2016 at 7:12 Board Certified Radiologist. This report was verified electronically.
--- NOTE | 2016-08-04 07:26 | PD ---
Data Data Last Documented VS Vital Signs Date Time Temp Pulse Resp B/P Pulse Ox O2 Delivery O2 Flow Rate FiO2 08/04/16 06:59 72 18 189/88 94 Room Air 08/04/16 05:51 97.5 Orders Electrocardiogram (08/04/16 06:12) Complete Blood Count With Diff (08/04/16 06:12) Comprehensive Metabolic Panel (08/04/16 06:12) Magnesium (Mg) (08/04/16 06:12) B-Type Natriuretic Peptide (08/04/16 06:12) Troponin I (08/04/16 06:12) Urinalysis - C+S If Indicated (08/04/16 06:12) Ct Brain W/O Iv Contrast(Rout) (08/04/16 06:12) Ecg Monitoring (08/04/16 06:12) Iv Access Insert/Monitor (08/04/16 06:12) Oximetry (08/04/16 06:12) Sodium Chloride 0.9% Flush (Ns Flush) (08/04/16 06:15) Labs Laboratory Tests Test 08/04/16 08/04/16 06:35 06:48 White Blood Count 7.7 TH/MM3 Red Blood Count 4.95 MIL/MM3 Hemoglobin 14.5 GM/DL Hematocrit 43.6 % Mean Corpuscular Volume 88.1 FL Mean Corpuscular Hemoglobin 29.3 PG Mean Corpuscular Hemoglobin 33.3 % Concent Red Cell Distribution Width 13.4 % Platelet Count 200 TH/MM3 Mean Platelet Volume 7.1 FL Neutrophils (%) (Auto) 66.6 % Lymphocytes (%) (Auto) 17.1 % Monocytes (%) (Auto) 11.8 % Eosinophils (%) (Auto) 3.8 % Basophils (%) (Auto) 0.7 % Neutrophils # (Auto) 5.1 TH/MM3 Lymphocytes # (Auto) 1.3 TH/MM3 Monocytes # (Auto) 0.9 TH/MM3 Eosinophils # (Auto) 0.3 TH/MM3 Basophils # (Auto) 0.1 TH/MM3 CBC Comment DIFF FINAL Differential Comment Sodium Level 139 MEQ/L Potassium Level 3.5 MEQ/L Chloride Level 103 MEQ/L Carbon Dioxide Level 26.3 MEQ/L Anion Gap 10 MEQ/L Blood Urea Nitrogen 11 MG/DL Creatinine 0.81 MG/DL Estimat Glomerular Filtration 91 ML/MIN Rate Random Glucose 117 MG/DL Calcium Level 9.0 MG/DL Magnesium Level 2.4 MG/DL Total Bilirubin 1.0 MG/DL Aspartate Amino Transf 18 U/L (AST/SGOT) Alanine Aminotransferase 23 U/L (ALT/SGPT) Alkaline Phosphatase 60 U/L Troponin I LESS THAN 0.02 NG/ML B-Type Natriuretic Peptide 69 PG/ML Total Protein 7.4 GM/DL Albumin 4.1 GM/DL Urine Collection Type CLEAN CATCH Urine Color YELLOW Urine Turbidity CLEAR Urine pH 6.0 Urine Specific [place] 1.008 Urine Protein 30 mg/dL Urine Glucose (UA) NEG mg/dL Urine Ketones NEG mg/dL Urine Occult Blood TRACE Urine Nitrite NEG Urine Bilirubin NEG Urine Leukocyte Esterase TRACE Urine RBC 0-3 /hpf Microscopic Urinalysis Comment CULT NOT INDICATED MDM Supervised Visit with MARY: No Narrative Course This is an 81-year-old male who presents to the emergency department weakness and dizziness that has been going on for [address] Vyas saw him and felt there was not likely an acute process going on, and that the patient would benefit from routine neurology consult as an outpatient. Labs were obtained which were all reassuring and a CT scan of the head was normal. Patient will be discharged with a referral to neurology. Diagnosis Primary Impression: Generalized weakness Referrals: Delmar Vick MD Patient Instructions: General Instructions Additional Instruction: If you develop severe chest pain, shortness of breath, sweating, lightheadedness , dizziness or difficulty breathing return to the emergency department immediately. Followup with a neurologist without fail. Med/Other Pt SpecificInfo: No Change to Meds Disposition: 01 DISCHARGE HOME Condition: Stable Barby Coy MD August 04, 2016 07:26
--- NOTE | 2016-08-04 15:16 | EKG ---
Date Performed: 08/04/2016 Time Performed: 06:23:34 PTAGE: 81 years EKG: Sinus rhythm with borderline 1st degree A-V block Left axis deviation Left bundle branch block Abnormal ECG Yeison red to prior tracing no significant change PREVIOUS TRACING : 06/19/2016 10.52 DOCTOR: Ryan Angel Interpretating Date/Time 08/04/2016 15:15:40
== END 2016-08-04 07:52 | disposition home or self-care (01) ==
LOC: PHED 05:44
DX: R53.1 Weakness (principal); R42 Dizziness and giddiness; I44.7 Left bundle-branch block, unspecified; R94.31 Abnormal electrocardiogram [ECG] [EKG]; M19.90 Unspecified osteoarthritis, unspecified site; E78.00 Pure hypercholesterolemia, unspecified; I10 Essential (primary) hypertension; Z79.899 Other long term (current) drug therapy; Z79.82 Long term (current) use of aspirin
CPT/HCPCS: 70450; 80053; 81001; 83735; 83880; 84484; 85025; 93005; 99285

== ENCOUNTER 2016-08-29 07:42 | Emergency (ER) | payer OTHER ==
[~2016-08-29] VITALS: Ht 170.2 cm; Wt 77.0 kg
[~2016-08-29 07:42] MED LIST changes: -PRIL20CA9 PO; -ZOFR4TAB3 SL
[2016-08-29 07:44] VITALS: BP 157/88; PULSE 99; RESP 20; TEMP 97.6; O2SAT 95
[2016-08-29] MEDS ORDERED: SERT-132 PO (08:07)
[2016-08-29] MEDS ORDERED: SODIUM CHLORIDE 0.9% FLUSH 10 ML FLUSH IVF PRN (08:15)
--- NOTE | 2016-08-29 08:16 | PD ---
HPI Chief Complaint: General Weakness Time Seen by Provider: 08:11 Travel History International Travel<30 days: No Contact w/Intl Traveler<30days: No Traveled to known affect area: No History of Present Illness HPI 81-year-old male with history of hypertension, recent visits for dizziness, presents to the ER today brought in by his son because he woke up complaining of dizziness. He also complains of neck pains and states he has been coughing with greenish phlegm recently. He denies any shortness of breath, fevers, chest pains, or other symptoms. He reports that he has been feeling somewhat weak. Modifying Factors: None Associated Signs & Symptoms: Neck pains, dizziness, coughing with phlegm production Risk Factors: Recent visits for dizziness PFSH Past Medical History Hx Anticoagulant Therapy: Yes (81 MG ASA) Arthritis: Yes Asthma: No Heart Rhythm Problems: No Cardiovascular Problems: Yes High Cholesterol: Yes Chest Pain: No Congestive Heart Failure: No COPD: No Cerebrovascular Accident: No Diabetes: No Diminished Hearing: No Gastrointestinal Disorders: No GERD: No Genitourinary: No Headaches: No Hepatitis: No Hiatal Hernia: No Hypertension: Yes Musculoskeletal: Yes (SPUR L ELBOW VAIOUS BROKEN BONES) Neurologic: Yes Reproductive: No Respiratory: No Immunizations Current: Yes Migraines: No Myocardial Infarction: No Seizures: No Sleep Apnea: No Ulcer: No Tetanus Vaccination: Unknown Influenza Vaccination: No Past Surgical History Abdominal Surgery: Yes Appendectomy: Yes Cardiac Surgery: No Cholecystectomy: No Ear Surgery: No Endocrine Surgery: No Eye Surgery: No Genitourinary Surgery: No Gynecologic Surgery: No Neurologic Surgery: No Oral Surgery: Yes (TONSILECTOMY) Thoracic Surgery: No Tonsillectomy: Yes Other Surgery: Yes Social History Alcohol Use: No Tobacco Use: No Substance Use: No Allergies-Medications (Allergen,Severity, Reaction): Coded Allergies: No Known Allergies (Verified , 08/29/16) Reported Meds & Prescriptions Reported Meds & Active Scripts Active Reported Sertraline (Sertraline HCl) 50 Mg Tab 50 Mg PO DAILY Simvastatin 20 Mg Tab 40 Mg PO DAILY Klor-Con 8 (Potassium Chloride) 8 Meq Tab 8 Meq PO DAILY Losartan (Losartan Potassium) 100 Mg Tab 100 Mg PO DAILY Nifedipine ER 24 HR (Nifedipine) 60 Mg Tab 60 Mg PO DAILY Review of Systems Except as stated in HPI: all other systems reviewed are Neg Physical Exam Narrative GENERAL: Well-developed elderly white male patient currently in mild distress. Awake and oriented 3. SKIN: Focused skin assessment warm/dry. HEAD: Atraumatic. Normocephalic. EYES: Pupils equal and round. No scleral icterus. No injection or drainage. ENT: No nasal bleeding or discharge. Mucous membranes pink and moist. NECK: Trachea midline. No JVD. CARDIOVASCULAR: Regular rate and rhythm. No murmur appreciated. RESPIRATORY: No accessory muscle use. Mild left midlung intermittent crackle. Breath sounds equal bilaterally. GASTROINTESTINAL: Abdomen soft, non-tender, nondistended. Hepatic and splenic margins not palpable. MUSCULOSKELETAL: No obvious deformities. No clubbing. No cyanosis. No edema. NEUROLOGICAL: Awake and alert. No obvious cranial nerve deficits. Motor grossly within normal limits. Normal speech. Normal Romberg. PSYCHIATRIC: Appropriate mood and affect; insight and judgment normal. Data Data Last Documented VS Vital Signs Date Time Temp Pulse Resp B/P Pulse Ox O2 Delivery O2 Flow Rate FiO2 08/29/16 08:38 70 15 150/80 97 Nasal Cannula 2 08/29/16 07:44 97.6 Orders Complete Blood Count With Diff (08/29/16 08:04) Comprehensive Metabolic Panel (08/29/16 08:04) B-Type Natriuretic Peptide (08/29/16 08:04) Influenzae A/B Antigen (08/29/16 08:04) Blood Culture (08/29/16 08:04) Iv Access Insert/Monitor (08/29/16 08:04) Electrocardiogram (08/29/16 08:04) Ecg Monitoring (08/29/16 08:04) Oximetry (08/29/16 08:04) Oxygen Administration (08/29/16 08:04) Chest, Single Ap (08/29/16 08:04) Sodium Chloride 0.9% Flush (Ns Flush) (08/29/16 08:15) Ct Brain W/O Iv Contrast(Rout) (08/29/16 08:11) Ct Cerv Spine W/O Contrast (08/29/16 08:11) Labs Laboratory Tests Test 08/29/16 08:15 White Blood Count 8.8 TH/MM3 Red Blood Count 4.80 MIL/MM3 Hemoglobin 14.4 GM/DL Hematocrit 41.7 % Mean Corpuscular Volume 86.8 FL Mean Corpuscular Hemoglobin 30.0 PG Mean Corpuscular Hemoglobin 34.6 % Concent Red Cell Distribution Width 13.8 % Platelet Count 231 TH/MM3 Mean Platelet Volume 6.9 FL Neutrophils (%) (Auto) 73.7 % Lymphocytes (%) (Auto) 12.8 % Monocytes (%) (Auto) 10.0 % Eosinophils (%) (Auto) 2.3 % Basophils (%) (Auto) 1.2 % Neutrophils # (Auto) 6.5 TH/MM3 Lymphocytes # (Auto) 1.1 TH/MM3 Monocytes # (Auto) 0.9 TH/MM3 Eosinophils # (Auto) 0.2 TH/MM3 Basophils # (Auto) 0.1 TH/MM3 CBC Comment DIFF FINAL Differential Comment Sodium Level 134 MEQ/L Potassium Level 3.7 MEQ/L Chloride Level 99 MEQ/L Carbon Dioxide Level 25.2 MEQ/L Anion Gap 10 MEQ/L Blood Urea Nitrogen 11 MG/DL Creatinine 0.81 MG/DL Estimat Glomerular Filtration 91 ML/MIN Rate Random Glucose 109 MG/DL Calcium Level 8.4 MG/DL Total Bilirubin 1.2 MG/DL Aspartate Amino Transf 21 U/L (AST/SGOT) Alanine Aminotransferase 31 U/L (ALT/SGPT) Alkaline Phosphatase 62 U/L B-Type Natriuretic Peptide 55 PG/ML Total Protein 7.0 GM/DL Albumin 4.0 GM/DL MDM Medical Decision Making Medical Screen Exam Complete: Yes Emergency Medical Condition: Yes Medical Record Reviewed: Yes Interpretation(s) EKG shows NSR with a first-degree AV block and a left bundle branch block pattern, no ST elevation or depression, and no arrhythmias. No significant T- wave inversions. Laboratory Tests Test 08/29/16 08:15 Mean Platelet Volume 6.9 FL (7.0-11.0) Neutrophils (%) (Auto) 73.7 % (16.0-70.0) Monocytes (%) (Auto) 10.0 % (0.0-8.0) Sodium Level 134 MEQ/L (136-145) Random Glucose 109 MG/DL (74-106) Calcium Level 8.4 MG/DL (8.5-10.1) Total Bilirubin 1.2 MG/DL (0.2-1.0) Last [address] 08/29/16 0811 Signed Impressions: Service Date/Time: Monday, August 29, 2016 09:03 - CONCLUSION: 1. Stable noncontrast head CT. No acute intracranial abnormality is identified. 2. Chronic changes include generalized atrophy and moderate periventricular white matter low attenuation characteristic of chronic microvascular ischemia. Jonathan Escobar MD Cervical Spine CT 08/29/16 0811 Signed Impressions: Service Date/Time: Monday, August 29, 2016 09:05 - CONCLUSION: 1. No acute cervical spine abnormality is identified. 2. There are degenerative changes of the cervical spine, as above, with left neural foraminal narrowing at C2-C3 and C4-C5. There is no canal stenosis. Jonathan Escobar MD Chest X-Ray 08/29/16803 Signed Impressions: Service Date/Time: Monday, August 29, 2016 08:01 - CONCLUSION: No acute cardiopulmonary abnormality is identified. Jonathan Escobar MD Differential Diagnosis Coughing, general weakness, dizzinessmetabolic issues versus dehydration versus vertigo versus acute intracranial processes/CVA versus pneumonia Narrative Course EKG did not show any signs of dysrhythmias. Vital signs are stable. Patient does not have any focal neurological deficits. He is ambulatory in the ER. At this point, patient's son states that he is in the process of being evaluated for dizziness and vertigo and is post to see a neurologist sometime next week. My plan would be to release him with further follow-up. Return for any worsening in symptoms as noted plan has been discussed with him and he states understanding. Diagnosis Primary Impression: Dizziness Disposition: 01 DISCHARGE HOME Condition: Stable Ava Chaparro MD Aug 29, 2016 08:16
--- NOTE | 2016-08-29 08:33 | RADRPT ---
EXAM DATE/TIME: 08/29/2016 08:01 [facility] COMPARISON: No previous studies available for comparison. INDICATIONS : Short of breath and dizziness. MEDICAL HISTORY : Cardiovascular disease. Hypertension. SURGICAL HISTORY : Appendectomy. ENCOUNTER: Initial ACUITY: 1 day PAIN SCORE: 0/10 LOCATION: Bilateral chest FINDINGS: PA and lateral views of the chest demonstrate a normal-sized cardiac silhouette. There is no effusion , consolidation, or pneumothorax. The bones and soft tissues demonstrate no acute abnormality. Descen ding thoracic aorta is mildly tortuous. CONCLUSION: No acute cardiopulmonary abnormality is identified. Jonathan Escobar MD on August 29, 2016 at 8:30 Board Certified Radiologist. This report was verified electronically.
[2016-08-29 08:38] VITALS: BP 150/80; PULSE 70; RESP 15; O2SAT 97
[2016-08-29 08:51] LABS: AUTOMATED NEUTROPHIL # 6.5 TH/MM3 (1.8-7.7); BASOPHIL # 0.1 TH/MM3 (0-0.2); BASOPHIL % 1.2 % (0.0-2.0); EOSINOPHIL # 0.2 TH/MM3 (0-0.4); EOSINOPHIL % 2.3 % (0.0-4.0); HEMATOCRIT 41.7 % (39.0-51.0); HEMO FLAGS DIFF FINAL; LYMPH % 12.8 % (9.0-44.0); LYMPHOCYTE # 1.1 TH/MM3 (1.0-4.8); MEAN CELL VOLUME 86.8 FL (80.0-100.0); MEAN CORPUSCULAR HGB CONC 34.6 % (32.0-36.0); NEUT % 73.7 % (16.0-70.0); PLATELET COUNT 231 TH/MM3 (150-450); RED CELL DISTRIBUTION WIDTH 13.8 % (11.6-17.2); WHITE BLOOD COUNT 8.8 TH/MM3 (4.0-11.0)
[2016-08-29 09:10] LABS: ANION GAP 10 MEQ/L (5-15); AST (GOT) 21 U/L (15-37); BICARBONATE 25.2 MEQ/L (21.0-32.0); BLOOD UREA NITROGEN 11 MG/DL (7-18); CHLORIDE 99 MEQ/L (98-107); GLOMERULAR FILTRATION RATE 91 ML/MIN (>89); POTASSIUM 3.7 MEQ/L (3.5-5.1); SODIUM (NA) 134 MEQ/L (136-145)
[2016-08-29 09:11] LABS: ALT (GPT) 31 U/L (12-78)
[2016-08-29 09:14] LABS: ALKALINE PHOSPHATASE 62 U/L (45-117); TOTAL BILIRUBIN ADULT 1.2 MG/DL (0.2-1.0)
--- NOTE | 2016-08-29 09:36 | RADRPT ---
EXAM DATE/TIME: 08/29/2016 09:03 [facility] COMPARISON: CT BRAIN W/O CONTRAST, August 04, 2016, 6:31. INDICATIONS : Dizziness and slight weakness. RADIATION DOSE: 56.35 CTDIvol (mGy) MEDICAL HISTORY : Cardiovascular disease. Hypertension. SURGICAL HISTORY : Tonsillectomy. ENCOUNTER: Initial ACUITY: 1 day PAIN SCALE: 0/10 LOCATION: cranial TECHNIQUE: Multiple contiguous axial images were obtained of the head. Using automated exposure control and adj ustment of the mA and/or kV according to patient size, radiation dose was kept as low as reasonably a chievable to obtain optimal diagnostic quality images. FINDINGS: CEREBRUM: There is generalized atrophy. Ventricles are prominent in size but stable. There is periventricular w star matter low attenuation similar to the prior study. No evidence of midline shift, mass lesion, h emorrhage or acute infarction. No extra-axial fluid collections are seen. POSTERIOR FOSSA: The cerebellum and brainstem demonstrate no acute finding. The 4th ventricle is midline. The cerebe llopontine angle is unremarkable. EXTRACRANIAL: Visualized sinuses are clear. SKULL: The calvaria is intact. No evidence of skull fracture. CONCLUSION: 1. Stable noncontrast head CT. No acute intracranial abnormality is identified. 2. Chronic changes include generalized atrophy and moderate periventricular white matter low attenuat ion characteristic of chronic microvascular ischemia. Jonathan Escobar MD on August 29, 2016 at 9:29 Board Certified Radiologist. This report was verified electronically.
--- NOTE | 2016-08-29 09:45 | RADRPT ---
EXAM DATE/TIME: 08/29/2016 09:05 [facility] COMPARISON: No previous studies available for comparison. INDICATIONS : Pain in back of neck for two weeks. RADIATION DOSE: 33.56 CTDIvol (mGy) MEDICAL HISTORY : Hypertension. Cardiovascular disease SURGICAL HISTORY : None. ENCOUNTER: Initial ACUITY: 2 weeks PAIN SCALE: 4/10 LOCATION: posterior neck. TECHNIQUE: Volumetric scanning of the cervical spine was performed. Multiplanar reconstructions in the sagittal, coronal and oblique axial planes were performed. Using automated exposure control and adjustment o f the mA and/or kV according to patient size, radiation dose was kept as low as reasonably achievable to obtain optimal diagnostic quality images. FINDINGS: VERTEBRAE: Normal vertebral body height. No fracture is visualized. ALIGNMENT: There is mild cervical kyphosis. No anterolisthesis or retrolisthesis is present. The craniocervical junction and C1-C2 level demonstrate no acute finding. C2-C3: There are is left facet arthrosis and left uncovertebral osteophyte that mildly narrows the left neur al foramen. No canal stenosis or right neural foraminal narrowing is present. C3-C4: There is mild left facet arthrosis. No disc herniation, canal stenosis, or significant neural foramin al narrowing is present. C4-C5: There is left facet arthrosis with minimal posterior disc osteophyte complex and left uncovertebral o steophyte. There is no canal stenosis or right neural foraminal narrowing. There is moderate left kortney ral foraminal stenosis. C5-C6: No disc herniation, canal stenosis, or neural foraminal narrowing. C6-C7: No disc herniation, canal stenosis, or neural foraminal stenosis. There is decreased disc height. C7-T1: There is right facet arthrosis. No disc herniation, canal stenosis, or neural foraminal stenosis. Visualized paraspinous structures demonstrate no acute finding. CONCLUSION: 1. No acute cervical spine abnormality is identified. 2. There are degenerative changes of the cervical spine, as above, with left neural foraminal narrowi ng at C2-C3 and C4-C5. There is no canal stenosis. Jonathan Escobar MD on August 29, 2016 at 9:38 Board Certified Radiologist. This report was verified electronically.
[2016-08-29 11:00] VITALS: BP 164/90
--- NOTE | 2016-08-29 13:01 | EKG ---
Date Performed: 08/29/2016 Time Performed: 08:53:49 PTAGE: 81 years EKG: Sinus rhythm WITH FIRST DEGREE AV BLOCK MARKED LEFT AXIS DEVIATION LEFT BUNDLE BRANCH BLOCK ABNORMAL ECG PREVIOUS TRACING : 08/04/2016 06.23 Compared to prior tracing no significant change DOCTOR: Jay Wilcox Interpretating Date/Time 08/29/2016 12:59:17
== END 2016-08-29 11:45 | disposition home or self-care (01) ==
LOC: NEPC 07:42
DX: R42 Dizziness and giddiness (principal); I10 Essential (primary) hypertension; M54.2 Cervicalgia; R05 Cough; R94.31 Abnormal electrocardiogram [ECG] [EKG]; B95.7 Other staphylococcus as the cause of diseases classified elsewhere
CPT/HCPCS: 70450; 71010; 72125; 80053; 83880; 85025; 86403; 87040; 87077; 87186; 87205; 87804; 93005; 99285

== ENCOUNTER 2016-09-03 13:59 | Emergency (ER) | payer OTHER ==
[~2016-09-03] VITALS: Ht 170.2 cm; Wt 80.0 kg
[~2016-09-03 13:59] MED LIST changes: +SERT-132 PO
[2016-09-03 14:01] VITALS: BP_SYST 120; BP_SYST 69; BP_DIAS 69; BP_DIAS 95; PULSE 20; PULSE 95; RESP 20; TEMP 98; O2SAT 95
--- NOTE | 2016-09-03 14:32 | PD ---
HPI . called to come in for + blood cultures Chief Complaint: Abnormal Results Time Seen by Provider: 14:32 Travel History International Travel<30 days: No Contact w/Intl Traveler<30days: No Traveled to known affect area: No History of Present Illness HPI 81-year-old male here telling me that he was called to come back to the emergency department secondary positive blood cultures. Blood cultures were reviewed and demonstrate Staphylococcus auricularis. Patient denies any fever or chills. He tells me that he just feels fatigued. He also admits to decreased oral intake. He denies any recent cold symptoms, increased urinary frequency or dysuria. He has no specific complaints except for generalized fatigue which he's been complaining about for the past several months. Records were reviewed and patient has had 2 CT scans of his brain since June 2016. Labs were done and were unremarkable. Patient tells me he feels he may be over- medicated and that his PCP may not be willing to change his meds. PFSH Past Medical History Hx Anticoagulant Therapy: Yes (81 MG ASA) Arthritis: Yes Asthma: No Heart Rhythm Problems: No Cardiovascular Problems: Yes (htn) High Cholesterol: Yes Chest Pain: No Congestive Heart Failure: No COPD: No Cerebrovascular Accident: No Diabetes: No Diminished Hearing: No Gastrointestinal Disorders: No GERD: No Genitourinary: No Headaches: No Hepatitis: No Hiatal Hernia: No Hypertension: Yes Musculoskeletal: Yes (SPUR L ELBOW VAIOUS BROKEN BONES) Neurologic: Yes Reproductive: No Respiratory: No Immunizations Current: Yes Migraines: No Myocardial Infarction: No Seizures: No Sleep Apnea: No Ulcer: No Past Surgical History Abdominal Surgery: Yes Appendectomy: Yes Cardiac Surgery: No Cholecystectomy: No Ear Surgery: No Endocrine Surgery: No Eye Surgery: No Genitourinary Surgery: No Gynecologic Surgery: No Neurologic Surgery: No Oral Surgery: Yes (TONSILECTOMY) Thoracic Surgery: No Tonsillectomy: Yes Other Surgery: Yes Social History Alcohol Use: No Tobacco Use: No Substance Use: No Allergies-Medications (Allergen,Severity, Reaction): Coded Allergies: No Known Allergies (Verified , 09/03/16) Reported Meds & Prescriptions Reported Meds & Active Scripts Active Reported Sertraline (Sertraline HCl) 50 Mg Tab 50 Mg PO DAILY Simvastatin 20 Mg Tab 40 Mg PO DAILY Klor-Con 8 (Potassium Chloride) 8 Meq Tab 8 Meq PO DAILY Losartan (Losartan Potassium) 100 Mg Tab 100 Mg PO DAILY Nifedipine ER 24 HR (Nifedipine) 60 Mg Tab 60 Mg PO DAILY Review of Systems General / Constitutional: Positive: Other (fatigue), No: Fever, Chills Eyes: No: Visual changes HENT: No: Headaches, Congestion Cardiovascular: No: Chest Pain or Discomfort, Palpitations Respiratory: No: Cough, Shortness of Breath, Wheezing, Sneezing Gastrointestinal: No: Nausea, Vomiting, Diarrhea, Abdominal Pain Genitourinary: No: Urgency, Frequency, Dysuria, Hematuria, Dribbling Musculoskeletal: No: Pain Skin: No Rash Neurologic: No: Weakness Psychiatric: No: Depression Endocrine: No: Polydipsia Hematologic/Lymphatic: No: Easy Bruising Physical Exam Narrative GENERAL: AAO x 3, no acute distress, Well-nourished, well-developed patient. SKIN: Warm and dry. No visible rashes or bruising. HEAD: Normocephalic and atraumatic. EYES: No scleral icterus. No injection or drainage. EOM intact, PERRLA moist mucous membranes. No abnormality of oropharynx. ENT: No nasal drainage noted. Mucous membranes pink. Airway patent. NECK: Supple, trachea midline. No JVD. no tenderness to palpation, no stiffness CARDIOVASCULAR: Regular rate and rhythm without murmurs, gallops, or rubs. RESPIRATORY: Breath sounds equal bilaterally. No accessory muscle use. No rhonchi or rales. GASTROINTESTINAL: Abdomen soft, non-tender, nondistended. No rebound or guarding EXTREMITIES: No cyanosis or edema. no tenderness to UE and LE BACK: Nontender without obvious deformity. No CVA tenderness. NEURO: CN II-12 intact, insurance sales supervisor strength normal b/l, UE and LE 5/5, no focal deficits PSYCH: AAO x 3, normal affect. Data Data Last Documented VS Vital Signs Date Time Temp Pulse Resp B/P Pulse Ox O2 Delivery O2 Flow Rate FiO2 09/03/16 14:34 16 09/03/16 14:01 98.0 95 120/69 95 Room Air Orders Blood Culture (09/03/16 15:00) MDM Medical Decision Making Medical Screen Exam Complete: Yes Emergency Medical Condition: Yes Medical Record Reviewed: Yes Differential Diagnosis positive blood culture, contaminated blood culture, less likely sepsis, less likely UTI, less likely PNA Narrative Course 81-year-old male here with call back to return to the ED secondary positive blood cultures. Blood cultures were reviewed and demonstrate growth of Staphylococcus auricularis. Call has been placed to infectious disease for recommendations on treatment versus possibility of contamination. [id number]: discussed with Dr. Sarmiento. He recommends recollect samples and no treatment as this seems like a contaminant. last labs reviewed. I have discussed with patient and he is in agreement. I advised patient to discuss "'over medication" with his PCP as he feels this is what is going on. Patient verbalized understanding of instructions, questions were answered, and thanked me for their care. I advised them if their condition worsens, please return to the nearest emergency room for further care. Diagnosis Primary Impression: Positive blood culture Patient Instructions: General Instructions Additional Instructions: Please return to emergency department if your symptoms return or worsen. If you develop fever or chills, please return to the emergency department. Follow up with your primary care provider. Med/Other Pt SpecificInfo: No Change to Meds Disposition: 01 DISCHARGE HOME Condition: Stable Seema Duval Sep 03, 2016 14:32
== END 2016-09-03 15:40 | disposition home or self-care (01) ==
LOC: NEPC 13:59
DX: R78.81 Bacteremia (principal); B95.61 Methicillin susceptible Staphylococcus aureus infection as the cause of diseases classified elsewhere; I10 Essential (primary) hypertension
CPT/HCPCS: 87040; 99283